=== PATIENT | male | born 1975 | race Caucasian/White ===

== ENCOUNTER 2018-04-09 21:42 | Emergency (ER) | payer OTHER ==
[~2018-04-09] VITALS: Ht 190.5 cm; Wt 89.8 kg
[2018-04-09 22:07] LABS: ABSOLUTE EOSINOPHILS 0.2 thou/uL (0.0-0.7); ABSOLUTE MONOCYTES 0.5 thou/uL (0.0-1.2); ABSOLUTE NEUTROPHILS 4.5 thou/uL (1.6-8.1); BASOPHILS 0.6 %; EOSINOPHILS 2.5 %; HEMATOCRIT 45.8 % (42.0-52.0); HEMOGLOBIN 15.8 gm/dL (14.0-18.0); LYMPHOCYTES 27.4 %; MCH 30.3 pg (26.0-34.0); MCHC 34.4 g/dL (28.0-37.0); MONOCYTES 7.1 %; MPV 9.2 fl. (7.2-11.1); NUCLEATED RBCS 0 /100WBC; PLATELET COUNT* 219 thou/uL (150-400); POLYS 62.4 %; RDW-CV 13.9 % (10.5-14.5); WBC 7.2 thou/uL (4.0-11.0)
[2018-04-09 22:15] LABS: ANION GAP 7 mmol/L (7-16); BUN 12 mg/dL (7-18); CALCIUM 8.5 mg/dL (8.5-10.1); CHLORIDE 103 mmol/L (98-107); CO2 26 mmol/L (21-32); CREATININE 1.2 mg/dL (0.6-1.3); GLUCOSE 107 mg/dL (70-99); SODIUM 136 mmol/L (136-145)
[2018-04-09 22:22] LABS: ALBUMIN 3.5 g/dL (3.4-5.0); ALKALINE PHOSPHATASE 62 U/L (46-116); SGOT 24 U/L (15-37); SGPT 34 U/L (30-65); TOTAL BILIRUBIN 0.3 mg/dL (<0.1-1.0); TOTAL PROTEIN 6.7 g/dL (6.4-8.2); TROPONIN-I LEVEL <0.06 ng/mL (<0.06)
[2018-04-09 23:19] VITALS: BP 115/76
--- NOTE | 2018-04-10 12:06 | EKG ---
[place] [address] ELECTROCARDIOGRAM REPORT Name: SHAWNA WILCOX Room: [facility]#: [id number] Admission: 04/09/18 Attend Phys: Discharge: 04/09/18 Date of : 73 Report #: [id number] THIS REPORT FOR: //name// [facility] ED Test Date: 2018-04-09 Test Time: 21:48:17 Pat Name: SHAWNA WILCOX Department: Room: Gender: M [facility] Safety Instructor: Damaris ARMSTRONG : 1975 Requested By: Miguel Angel Arana Order Number: [id number] MD: Stepan Larios Measurements Intervals [place] Rate: 95 P: 37 NV: 164 QRS: -8 QRSD: 87 T: 12 QT: 348 QTc: 438 Interpretive Statements Sinus rhythm Inferior infarct, old Borderline ST elevation, anterior leads No previous ECG available for comparison Electronically Signed On 04-10-2018 12:06:31 CDT by Stepan Larios [email or web address] <ELECTRONICALLY SIGNED> By: Stepan Larios MD, [facility] 04/10/18 1206 [id number] Stepan Larios MD, FACC /EPI
== END 2018-04-09 23:15 | disposition home or self-care (01) ==
LOC: M.ERS 21:42
PROVIDERS: Emergency Medicine Emergency Medical Services
DX: R56.9 Unspecified convulsions (principal); F17.210 Nicotine dependence, cigarettes, uncomplicated